=== PATIENT | male | born 1960 | race Caucasian/White ===

== ENCOUNTER 2017-01-22 13:05 | Emergency (ER) | payer BC ==
[2017-01-22 13:19] VITALS: BP 120/70
--- NOTE | 2017-01-22 13:36 | UC ---
Laceration HPI - HPI Summary HPI Summary: complaint of left thumb laceration was working in basement and stabbed himself with a screwdriver was wearing work gloves but went throught the gloves lots of bleeding last tetanus immunization unknown - History Of Current Complaint Chief Complaint: UCUpperExtremity Stated Complaint: THUMB LAC Hx Obtained From: Patient - Allergies/Home Medications Allergies/Adverse Reactions: Allergies Allergy/AdvReac Type Severity Reaction Status Date / Time No Known Allergies Allergy Verified 08/08/14 10:20 PMH/Surg Hx/FS Hx/Imm Hx Previously Healthy: Yes Endocrine History Of: Denies: Diabetes, Thyroid Disease Cardiovascular History Of: Denies: Cardiac Disorders, Hypertension Respiratory History Of: Denies: COPD, Asthma GI/ History Of: Denies: Ulcer - Surgical History Surgical History: Yes Surgery Procedure, Year, and Place: tonsilectomy - Family History Known Family History: Negative: Cardiac Disease, Hypertension, Diabetes - Social History Occupation: Employed Full-time Lives: With Family Alcohol Use: Occasionally Substance Use Type: None Smoking Status (MU): Never Smoked Tobacco Review of Systems Constitutional: Negative Skin: Other - laceration Eyes: Negative ENT: Negative Respiratory: Negative Cardiovascular: Negative Gastrointestinal: Negative Genitourinary: Negative Motor: Negative Neurovascular: Negative Musculoskeletal: Negative Neurological: Negative Psychological: Negative All Other Systems Reviewed And Are Negative: Yes Physical Exam Triage Information Reviewed: Yes Appearance: No Pain Distress, Well-Nourished Vital Signs: Initial Vital Signs Temp 97.3 F 01/22/17 13:08 Pulse 59 01/22/17 13:08 Resp 18 01/22/17 13:08 BP 120/70 01/22/17 13:08 Pulse Ox 100 01/22/17 13:08 Vital Signs Reviewed: Yes ENT: Positive: Pharynx normal, TMs normal Neck: Positive: No Lymphadenopathy Respiratory: Positive: Lungs clear, Normal breath sounds, No respiratory distress Cardiovascular: Positive: RRR, No Murmur Musculoskeletal Exam: Normal Neurological Exam: Normal Psychological Exam: Normal Skin: Positive: Other - left thumb 1cm laceration below fingernail- 1-2mm deep Laceration Repair - Laceration Repair 1 Description: Linear Laceration Size After Repair: Length (cm) - 1, Width (mm) - 1, Depth (mm) - 2 Modified For Repair: No Cleansing Completed Via Routine Prep: Yes Irrigation With Pressure Irrigation Device: Yes Closure Material: Skin Adhesive, SteriStrips Laceration Course/Dx - Differential Dx - Laceration/Wound Differental Diagnoses: Laceration Provider Diagnoses: left thumb laceration -simple Discharge - Discharge Plan Condition: Stable Disposition: HOME Patient Education Materials: Laceration (ED), Diphtheria/Acellular Pertussis/ Tetanus Vaccine (DTaP) (By injection) Referrals: Odilon Howard MD [Primary Care Provider] - Additional Instructions: keep your finger clean and dry let the steristrip stay in place until it falls off Please review your discharge instructions. If your symptoms do not improve please call your primary care provider or return to urgent care
[2017-01-22] MEDS ORDERED: Tetan/Diph/Pertus SYR(Tdap)* 0.5 ML SYR(BOOSTRIX) use SYR IM ONE (13:44)
== END 2017-01-22 14:14 | disposition home or self-care (01) ==
LOC: UCEAST 13:05
DX: S61.012A Laceration without foreign body of left thumb without damage to nail, initial encounter (principal); W27.0XXA Contact with workbench tool, initial encounter; Y93.89 Activity, other specified; Y92.008 Other place in unspecified non-institutional (private) residence as the place of occurrence of the external cause; Z23 Encounter for immunization
CPT/HCPCS: 12001; 90471; 90715; 99211; G0463

== ENCOUNTER 2019-03-01 12:22 | Day surgery (SDC) | payer BC ==
[2019-03-01] MEDS ORDERED: Famotidine IV* 10 MG/ML 2 ML (20 mg) ONE (14:12)
[2019-03-01] MEDS ORDERED: ceFAZolin 2 GM PREMIX in ORs 2 GM/50 ML BAG IVPB ONE (14:15)
[2019-03-01] MEDS ORDERED: metroNIDAZOLE IV 500 MG/100ML* 500 MG/100 ML BAG IVPB ONE (14:19)
[2019-03-01] MEDS ORDERED: Buffered Lidocaine 1% SYRIN* 1 ML/SYRINGE INTRADERM ONE (14:52)
[2019-03-01] MEDS ORDERED: Naloxone* 0.4 MG/ML 1 ML VIAL IV PRN (14:52)
[2019-03-01] MEDS ORDERED: fentaNYL* 50 MCG/ML 2 ML VIAL (100 MCG VIAL) IV PRN (14:52)
[2019-03-01] MEDS ORDERED: DiMENhydriNATE IV* 50 MG/ML VIAL IV PUSH PRN (14:52)
[2019-03-01] MEDS ORDERED: diPHENhydraMINE IV* 50 MG/ML 1 ml VIAL (BENADRYL) IV PRN (14:52)
[2019-03-01] MEDS ORDERED: oxyCODONE TAB* 5 MG TAB PO PRN ×2 (14:52)
[2019-03-01] MEDS ORDERED: PROCHLORPERAZINE INJ 5 MG/ML 2 ML VIAL IV PRN (14:52)
[2019-03-01] MEDS ORDERED: Ondansetron INJ* 2 MG/ML VIAL IV PRN (14:52)
[2019-03-01] MEDS ORDERED: Acetaminophen IV 1GM/100ML * 100 ML ONE (14:55)
[2019-03-01] MEDS ORDERED: Lactated Ringers 1000 ML Bag* 1,000 ML IV SCH (15:00)
--- NOTE | 2019-03-01 15:38 | BRIEFOPN ---
Brief Operative Note - Surgery Procedures: Procedures Pre-OP Diagnoses: acute appendicitis Post-op Diagnosis: same Procedure: Laparoscopic appendectomy Surgeon: Shraddha Asst: none Anethesia: TIFFANIE Hedrick EBL: <20cc IVF: 1L crystalloid Specimen: appendix Drains: none
[2019-03-01] MEDS: fentaNYL* 50 MCG/ML 2 ML VIAL (100 MCG VIAL) IV PRN ×2 (15:55→16:00)
[2019-03-01] MEDS ORDERED: fentaNYL* 50 MCG/ML 2 ML VIAL (100 MCG VIAL) ONE (15:55)
[2019-03-01] MEDS ORDERED: oxyCODONE TAB* 5 MG TAB ONE (16:55)
[2019-03-01 17:54] VITALS: BP 105/60
--- NOTE | 2019-03-01 20:03 | OP ---
CC: Dr. Odilon Howard; [facility]* OPERATIVE REPORT: DATE OF OPERATION: 03/01/19 - SDS DATE OF : 60 SURGEON: Zac Llanes MD. AUTOMATION MACHINE BUILDER: None. ANESTHESIOLOGIST: Dr. Hedrick. ANESTHESIA: General anesthesia. PRE-OP DIAGNOSIS: Acute appendicitis. POST-OP DIAGNOSIS: Acute appendicitis. OPERATIVE PROCEDURE: Laparoscopic appendectomy. ESTIMATED BLOOD LOSS: Minimal blood loss. FLUIDS: 1 L of crystalloid fluid given. SPECIMEN: Appendix. DRAINS: None. COUNTS: Lap pad count and instrument count correct at the end of the procedure. INDICATIONS: I discussed with the patient in my office the recommendation of a laparoscopic appendectomy, going over the risks, benefits, and alternatives. The patient wished to proceed. We sent him for a same-day surgery. He was seen in the preoperative area, marked, and consent had already been signed. DESCRIPTION OF PROCEDURE: He was brought to the operating room, placed on the operating table in the supine position. Preoperative antibiotics were given. Sequential devices were placed on bilateral lower extremities and general anesthesia was induced. The patient's abdomen was prepped and draped in the standard surgical fashion after the hair was clipped and a time-out was performed. An infraumbilical incision was made. This skin was elevated and a Veress needle inserted into the abdominal cavity, which was then allowed to insufflate to a pressure of 15 mmHg. The patient tolerated the insufflation well. A 12- mm Optiview was then placed through this. Laparoscope was inserted and there was no evidence of injury from the trocar insertion or Veress needle. Additional trocars were then placed in the following position: 5 mm in the suprapubic area and a 5 mm in the left lower quadrant. Table was repositioned and the tip of the appendix was identified. This was indurated without evidence of perforation, but when we did grasp the mesentery, we did see some thick fluid get expressed from the mesentery that may be suggestive of perforation. This fluid was suctioned off, but only scant and not cultured. Next, took attachments from the small bowel down with scissors that was attached to the mesentery of the appendix. We then also took lateral attachments in a similar fashion. Next, a window was made at the base of the appendix through healthy tissue and a 45- mm azevedo CHIOC stapler was placed. This was handed to me and I was under the impression it was a shin. We fired the stapler and sammy appeared intact. We then took the mesentery with a 45-mm azevedo CHICO stapling device in a similar fashion. The staple line showed that there were intact sammy without any bleeding or enteric contents. I did make decision to add additional 2-0 silk sutures to imbricate the staple line at the cecum. These were performed with 2 individual U- stitches with 2-0 silk. We did use clip human relations teacher at the staple edge that showed some oozing and review of the abdomen showed no additional lesions. The patient was placed back to a neutral position. The appendix in its endoscopic retrieval bag was then removed through the umbilical port site, which was closed with the fascial layer with 0 Vicryl suture using a Weck device. Abdomen was allowed to collapse. The other trocars were removed under direct vision and all 3 skin incisions were reapproximated with 4-0 Monocryl subcuticular sutures followed by Steri-Strips and sterile dressing. The patient tolerated the procedure well and was transferred to the PACU in stable condition. [id number]/[facility] #: [id number] CHARI
== END 2019-03-01 17:57 | disposition home or self-care (01) ==
LOC: OR 12:22
PROVIDERS: ATTEND Surgery
DX: K35.80 Unspecified acute appendicitis (principal); R10.84 Generalized abdominal pain; R00.2 Palpitations; R07.9 Chest pain, unspecified
CPT/HCPCS: 88304; A9270-GY; J0690; J3010; J3490